=== PATIENT | male | born 2000 | race Caucasian/White ===

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

== ENCOUNTER 2024-10-04 15:08 | Emergency (ER) | payer OTHER ==
[~2024-10-04] VITALS: Ht 185.4 cm; Wt 84.8 kg
[2024-10-04] MEDS ORDERED: ADENOSINE 3 MG/ML VIAL ONE (15:37)
[2024-10-04 15:40] LABS: BASOPHILS 4.6 % (0-2); HEMOGLOBIN 15.9 g/dL (12.0-18.0); LYMPHOCYTES 21.7 % (24-44); MCH 31.3 (27-36); MCHC 35.4 g/dl (30-36); MCV 88.4 fl (81-99); MONOCYTES 7.1 % (0-12); NEUTROPHILS 64.6 % (39-80); PLATELET COUNT 318 K/uL (140-440); RBC 5.09 M/ul (4.3-5.7); RDW 13.7 (10.5-15.0)
[2024-10-04] MEDS ORDERED: SODIUM CHLORIDE 0.9% 1,000 ML IV ONE ×2 (15:45→17:45)
[2024-10-04] MEDS ORDERED: ADENOSINE 3 MG/ML VIAL IV ONE ×2 (15:45)
[2024-10-04] MEDS ORDERED: LORazepam 2 MG/ML VIAL IV ONE ×2 (16:00→17:45)
[2024-10-04 16:06] LABS: ALBUMIN 4.7 g/dL (3.4-5.0); ALBUMIN/GLOBULIN RATIO 1.18 (1.1-2.4); ALKALINE PHOSPHATASE 90 U/L (46-116); ALT (SGPT) 25 U/L (14-59); ANION GAP 15.1 (7-21); AST (SGOT) 11 U/L (15-37); BILIRUBIN, TOTAL 0.8 mg/dL (0.2-1.0); CALCIUM 9.9 mg/dL (8.5-10.1); CARBON DIOXIDE 28 mmol/L (21-32); CHLORIDE 102 mmol/L (98-107); CREATININE, SERUM 1.29 mg/dL (0.70-1.30); GLOMERULAR FILTRATION RATE,EST 80 mL/min (>60); POTASSIUM 3.1 mmol/L (3.5-5.1); PROTEIN, TOTAL 8.7 g/dL (6.4-8.2); TSH, 3RD GENERATION 0.416 uIU/mL (0.358-3.740); UREA NITROGEN 12 mg/dL (7-18)
[2024-10-04 16:50] LABS: AMPHETAMINES, URINE NEGATIVE (NEGATIVE); BARBITURATES, URINE NEGATIVE (NEGATIVE); BENZODIAZEPINE, URINE NEGATIVE (NEGATIVE); BUPRENORPHINE, URINE NEGATIVE (NEGATIVE); CANNABINOID, URINE POSITIVE (NEGATIVE); COCAINE, URINE NEGATIVE (NEGATIVE); ECSTASY, URINE NEGATIVE (NEGATIVE); FENTANYL, URINE NEGATIVE (NEGATIVE); METHADONE, URINE NEGATIVE (NEGATIVE); OPIATES, URINE NEGATIVE (NEGATIVE); OXYCODONE, URINE NEGATIVE (NEGATIVE); PHENCYCLIDINE, URINE NEGATIVE (NEGATIVE)
[2024-10-04 19:50] VITALS: BP 142/87
--- NOTE | 2024-10-06 18:37 | EKG ---
[facility] [address] [facility] [place] [address] Signed Sinus tachycardia Cannot rule out Inferior infarct , age undetermined Abnormal ECG No previous ECGs available Confirmed by Amanda Stewart MD () on 10/06/2024 6:36:57 PM Electronically Signed By: AMANDA STEWART MD 10/06/24 183 PATIENT NAME: KAILA BONILLA Electrocardiogram DATE OF : [birth year] PHYSICIAN: AMANDA STEWART MD REPORT #: [id number] REPORT IS CONFIDENTIAL AND NOT TO BE RELEASED WITHOUT AUTHORIZATION
== END 2024-10-04 19:50 | disposition home or self-care (01) ==
LOC: EDBD 15:08 → ED 15:08
PROVIDERS: Emergency Medicine
DX: T40.711A Poisoning by cannabis, accidental (unintentional), initial encounter (principal); R53.1 Weakness
CPT/HCPCS: 36415; 71045; 80053; 80307; 83735; 84443; 84484; 85025; 93005; 93010; 96374; 96375; 96376; 99285-25; J0153; J2060; J7030